=== PATIENT | female | born 1950 | race African-American/Black ===

== ENCOUNTER 2018-10-24 12:48 | Emergency (ER) | payer OTHER ==
[~2018-10-24] VITALS: Ht 167.6 cm; Wt 72.6 kg
[2018-10-24] MEDS ORDERED: ALENDRONATE SOD70 MG PO (13:35)
[2018-10-24] MEDS ORDERED: COZAAR 50 MG TA50 MG PO (13:35)
[2018-10-24] MEDS ORDERED: GLIPIZIDE 10 MG10 MG PO (13:36)
[2018-10-24] MEDS ORDERED: METFORMIN HCL500 MG PO (13:36)
[2018-10-24] MEDS ORDERED: LIPITOR10 MG PO (13:36)
[2018-10-24] MEDS ORDERED: SOLIQUA 100 UNIT3 ML SUBQ (13:37)
[2018-10-24 15:04] LABS: HEMOGLOBIN 12.3 gm/dL (12.0-15.0); MCH 26.2 pg (26.0-34.0); MCHC 34.2 g/dL (28.0-37.0); MCV 76.6 fL (80.0-100.0); RBC 4.7 mil/uL (4.20-5.00); WBC 6.6 thou/uL (4.0-11.0)
[2018-10-24 15:14] LABS: ANION GAP 13 mmol/L (7-16); BUN 15 mg/dL (7-18); CHLORIDE 101 mmol/L (98-107); CO2 21 mmol/L (21-32); CREATININE 0.8 mg/dL (0.6-1.0); GLUCOSE 113 mg/dL (74-106); POTASSIUM 4.1 mmol/L (3.5-5.1); SODIUM 135 mmol/L (136-145)
[2018-10-24 15:24] LABS: ALBUMIN 3.1 g/dL (3.4-5.0); LIPASE 202 U/L (73-393); MAGNESIUM 1.6 mg/dL (1.8-2.4); SGOT 18 U/L (15-37); SGPT 22 U/L (30-65); TOTAL BILIRUBIN 0.4 mg/dL (<0.1-1.0); TOTAL PROTEIN 7.9 g/dL (6.4-8.2); TROPONIN-I <0.06 ng/mL (<0.06)
[2018-10-24 16:35] LABS: URINE BILIRUBIN NEGATIVE (Negative); URINE BLOOD NEGATIVE (Negative); URINE CLARITY CLEAR; URINE COLOR YELLOW; URINE GLUCOSE-RANDOM* NEGATIVE (Negative); URINE KETONES NEGATIVE (Negative); URINE LEUKOCYTES-REFLEX NEGATIVE (Negative); URINE NITRITE-REFLEX NEGATIVE (Negative); URINE PROTEIN (DIPSTICK) TRACE (Negative); URINE SPECIFIC GRAVITY <= 1.005 (1.005-1.035); URINE UROBILINOGEN 0.2 E.U./dl (0.2-1.0)
[2018-10-24] MEDS ORDERED: ONDANSETRON ODT8 MG PO (16:37)
[2018-10-24 17:19] VITALS: BP 120/67
--- NOTE | 2018-10-25 08:04 | EKG ---
[facility] [place] [address] ELECTROCARDIOGRAM REPORT Name: TONY BERUMEN Room #: REG [facility]#: [id number] ������������������ Admission: 10/24/18 ������������������ Attend Phys: Discharge: ������������������ Date of : 46 Report #: [id number] ����������������������������������������������������������������� [id number] THIS REPORT FOR: //name// [facility] ED Test Date: 2018-10-24 Test Time: 13:42:43 Pat Name: TONY BERUMEN Department: Room: Gender: F Endoscopic Technician: Alessandro Armas : 1950 Requested By: Sergio Ruano Order Number: [id number] MD: Dimas Johnson Measurements Intervals [place] Rate: 115 P: 86 LA: 120 QRS: 75 QRSD: 76 T: 11 QT: 303 QTc: 419 Interpretive Statements Sinus tachycardia Multiple ventricular premature complexes Right atrial enlargement Minimal ST depression, diffuse leads No previous ECG available for comparison Electronically Signed On 10-25-2018 8:04:06 CDT by Dimas Johnson [email or web address] ��������������������������������������������� <ELECTRONICALLY SIGNED> ���������������������������������������� By: Dimas Johnson MD ��������������������������������������������� 10/25/18 [id number] Dimas Johnson MD /STEPHON
== END 2018-10-24 17:19 | disposition home or self-care (01) ==
LOC: ER 12:48
PROVIDERS: Emergency Medicine
DX: K52.9 Noninfective gastroenteritis and colitis, unspecified (principal); Z88.0 Allergy status to penicillin